=== PATIENT | female | born 1975 | race Hispanic/Latino ===

== ENCOUNTER 2022-01-13 10:29 | Day surgery (SDC) | payer OTHER ==
[2022-01-13 11:11] VITALS: BMI 23.8
[2022-01-13] MEDS ORDERED: Lidocaine 1% MPF 2 ML VIAL ONE (11:27)
[2022-01-13] MEDS ORDERED: Midazolam HCl 2 mg/2 ml Vial ONE (11:45)
[2022-01-13] MEDS ORDERED: Fentanyl 100 MCG/2 ML VIAL ONE (11:45)
[2022-01-13] MEDS ORDERED: PROPOFOL 20 ML ONE (11:45)
[2022-01-13] MEDS ORDERED: PROPOFOL 40 ML ONE (11:45)
[2022-01-13] MEDS ORDERED: Ondansetron PF 4 MG/2 ML Vial ONE (11:46)
[2022-01-13] MEDS ORDERED: Glycopyrrolate 0.2 MG/ML 5 ML SYRINGE ONE (11:46)
[2022-01-13] MEDS ORDERED: Dexamethasone 20 MG/5 ML VIAL ONE (11:46)
[2022-01-13] MEDS ORDERED: Lidocaine 1% PF 5 ML VIAL ONE (11:46)
[2022-01-13 11:51] LABS: BHCG - Serum Negative (NEGATIVE); Pregs Control Background? CLEAR/WHITE (CLR/WHITE); Pregs Control Bar Appear? YES (CONTROL BAR)
== END 2022-01-13 13:15 | disposition home or self-care (01) ==
LOC: CSHSDC/OP 10:29
PROVIDERS: ATTEND Otolaryngology Plastic Surgery within the Head & Neck
PROC: 0CCM8ZZ Extirpation of Matter from Pharynx, Via Natural or Artificial Opening Endoscopic (ICD-10-PCS; principal; 2022-01-13)
DX: T18.128A Food in esophagus causing other injury, initial encounter (principal)
CPT/HCPCS: 84703; J1100; J2250; J2405; J2704; J3010